=== PATIENT | female | born 1990 | race Caucasian/White ===

== ENCOUNTER 2017-03-07 10:39 | Emergency (ER) | payer BC ==
[~2017-03-07] VITALS: Ht 167.6 cm; Wt 117.0 kg
[~2017-03-07 10:39] MED LIST: ESCI10TA10 PO; IBUP-1222 PO; NO HOME MEDS; PREN1TAB60 PO
[2017-03-07] MEDS ORDERED: HYDROmorphone 2 MG/ML, 1ML ONE (13:22)
[2017-03-07] MEDS ORDERED: ONDANSETRON 2MG/ML, 2ML ONE (13:22)
[2017-03-07] MEDS ORDERED: SODIUM CHLORIDE FLUSH 10ML SYR IVF ONE (13:30)
[2017-03-07] MEDS ORDERED: SODIUM CHLORIDE 0.9% 1,000ML IVBOLUS ONE (13:30)
[2017-03-07] MEDS ORDERED: HYDROmorphone 1 MG/ML, 1ML IVPush PRN (13:30)
[2017-03-07] MEDS ORDERED: ONDANSETRON 2MG/ML, 2ML IVPush ONE (13:30)
[2017-03-07 13:35] LABS: HEMATOCRIT 40.9 % (34.6-47.8); HEMOGLOBIN 13.9 g/dL (11.7-16.4); WHITE BLOOD COUNT 7.4 x10^3/uL (3.4-10)
[2017-03-07 13:45] LABS: BLOOD UREA NITROGEN 13 mg/dL (7-18)
[2017-03-07 13:51] LABS: ASPARTATE AMINO TRANSFERASE 18 U/L (15-37)
[2017-03-07 15:12] VITALS: BP 124/84
== END 2017-03-07 15:14 | disposition home or self-care (01) ==
LOC: ED 13:14
DX: R10.11 Right upper quadrant pain (principal)
CPT/HCPCS: 36415; 76700; 80053; 83690; 84703; 85025; 96361; 96374; 96375; 99285; J1170; J2405; J7030

== ENCOUNTER 2017-12-19 15:41 | Emergency (ER) | payer BC ==
[~2017-12-19] VITALS: Ht 167.6 cm; Wt 113.2 kg
[2017-12-19 16:49] VITALS: BP 166/91
[2017-12-19 17:17] LABS: BASOPHILS # (AUTO) 0.04 x10^3/uL (0-0.1); BASOPHILS % (AUTO) 1 % (0-1); EOSINOPHILS % (AUTO) 1 % (1-7); LYMPHOCYTES # (AUTO) 2.37 x10^3/uL (1-3.4); LYMPHOCYTES % (AUTO) 32 % (22-44); MD NO; MEAN CORPUSCULAR HEMOGLOBIN 30.4 pg (27.0-34.8); MEAN CORPUSCULAR HGB CONC 34.8 g/dL (32.4-35.8); MEAN CORPUSCULAR VOLUME 87.2 fL (80-100); MEAN PLATELET VOLUME 8.1 fL (7.4-10.4); MONOCYTES # (AUTO) 0.92 x10^3/uL (0.2-0.8); MONOCYTES % (AUTO) 12 % (2-9); NEUTROPHILS # (AUTO) 3.97 x10^3/uL (1.8-6.8); NEUTROPHILS % (AUTO) 54 % (42-75); PLATELET COUNT 300 x10^3/uL (130-400); RED BLOOD COUNT 4.47 x10^6/uL (3.82-5.3); RED CELL DISTRIBUTION WIDTH 12.9 % (9.6-15.2)
[2017-12-19 17:30] LABS: ALANINE AMINOTRANSFERASE 31 U/L (12-78); ALBUMIN 3.8 g/dL (3.4-5.0); ANION GAP 7 mmol/L (5-15); CALCIUM 8.8 mg/dL (8.5-10.1); CHLORIDE 109 mmol/L (98-107); CREATININE 0.87 mg/dL (0.55-1.02)
[2017-12-19 17:35] LABS: ALKALINE PHOSPHATASE 118 U/L (45-117); BILIRUBIN,TOTAL 0.6 mg/dL (0.2-1.0); TOTAL PROTEIN 7.7 g/dL (6.4-8.2)
[2017-12-19 18:23] LABS: MICROSCOPIC AUTO
[2017-12-19] MEDS ORDERED: ONDANSETRON ODT 8 MG ONE (18:51)
[2017-12-19 18:56] LABS: CULTURE INDICATED? YES
[2017-12-19] MEDS ORDERED: NITROFURANTOIN (MACROBID) 100 MG CAPSULE PO ONE (19:00)
[2017-12-19] MEDS ORDERED: ONDANSETRON ODT 8 MG PO ONE (19:00)
[2017-12-19] MEDS ORDERED: NITROFURANTOIN (MACROBID) 100 MG CAPSULE ONE (19:19)
== END 2017-12-19 19:38 | disposition home or self-care (01) ==
LOC: ED 19:28
DX: R11.2 Nausea with vomiting, unspecified (principal); R10.9 Unspecified abdominal pain
CPT/HCPCS: 36415; 76700; 80053; 81001; 83690; 84703; 85025; 87086; 99285; Q0162

== ENCOUNTER 2018-06-10 14:10 | Emergency (ER) | payer BC ==
[~2018-06-10] VITALS: Ht 165.1 cm; Wt 112.0 kg
[2018-06-10] MEDS ORDERED: SODIUM CHLORIDE FLUSH 10ML SYR IVF ONE (14:30)
[2018-06-10] MEDS ORDERED: ONDANSETRON 2MG/ML, 2ML IVPush ONE (14:30)
--- NOTE | 2018-06-10 14:50 | NUR ---
Pt in CT at this time.
[2018-06-10] MEDS ORDERED: ONDANSETRON 2MG/ML, 2ML ONE (14:51)
[2018-06-10] MEDS ORDERED: FENTANYL PF 100 MCG/2ML ONE (14:52)
[2018-06-10 14:59] LABS: BASOPHILS # (AUTO) 0.04 x10^3/uL (0-0.1); BASOPHILS % (AUTO) 0 % (0-1); EOSINOPHILS # (AUTO) 0.07 x10^3/uL (0-0.4); EOSINOPHILS % (AUTO) 1 % (1-7); LYMPHOCYTES # (AUTO) 2.61 x10^3/uL (1-3.4); LYMPHOCYTES % (AUTO) 27 % (22-44); MD NO; MEAN CORPUSCULAR HEMOGLOBIN 29.9 pg (27.0-34.8); MEAN CORPUSCULAR HGB CONC 33.9 g/dL (32.4-35.8); MEAN CORPUSCULAR VOLUME 88.2 fL (80-100); MEAN PLATELET VOLUME 8.2 fL (7.4-10.4); MONOCYTES # (AUTO) 0.86 x10^3/uL (0.2-0.8); MONOCYTES % (AUTO) 9 % (2-9); NEUTROPHILS # (AUTO) 6.04 x10^3/uL (1.8-6.8); NEUTROPHILS % (AUTO) 63 % (42-75); PLATELET COUNT 363 x10^3/uL (130-400); RED BLOOD COUNT 4.87 x10^6/uL (3.82-5.3); RED CELL DISTRIBUTION WIDTH 12.6 % (9.6-15.2)
[2018-06-10] MEDS ORDERED: FENTANYL PF 100 MCG/2ML IVPush ONE (15:00)
[2018-06-10] MEDS ORDERED: OMNIPAQUE 350 MG/ML, 100ML BOTTLE ONE (15:01)
[2018-06-10 15:03] LABS: ALANINE AMINOTRANSFERASE 34 U/L (12-78); ALBUMIN 4.4 g/dL (3.4-5.0); ANION GAP 6 mmol/L (5-15); CALCIUM 8.7 mg/dL (8.5-10.1); CHLORIDE 110 mmol/L (98-107); CREATININE 0.92 mg/dL (0.55-1.02)
--- NOTE | 2018-06-10 15:03 | NUR ---
Pt back from CT, c/o 12/20 upper and lower abd pain. Pt medicated per MAR, denies other needs.
[2018-06-10 15:07] LABS: ALKALINE PHOSPHATASE 109 U/L (45-117); BILIRUBIN,TOTAL 0.8 mg/dL (0.2-1.0); TOTAL PROTEIN 8.1 g/dL (6.4-8.2)
[2018-06-10 15:20] LABS: PROTHROMBIN TIME 10.5 Seconds (9.6-11.5)
[2018-06-10] MEDS ORDERED: OXYcodone/APAP 10/325MG TABLET ONE (15:22)
[2018-06-10] MEDS ORDERED: HYDROcodone/APAP 5/325 TABLET ONE (15:24)
--- NOTE | 2018-06-10 15:26 | NUR ---
Pt states pain unchanged after Fentanyl. Discussed with Dr. Gerber. Orders received for [place] [place]. Pt medicated per order, denies other needs.
[2018-06-10] MEDS ORDERED: HYDROcodone/APAP 5/325 TABLET PO ONE (15:30)
[2018-06-10] MEDS ORDERED: OXYcodone/APAP 10/325MG TABLET PO ONE (15:30)
[2018-06-10 15:53] VITALS: BP 122/60
--- NOTE | 2018-06-10 15:53 | NUR ---
Pt states pain improved after medications, states she feels ready for dc.
== END 2018-06-10 15:56 | disposition home or self-care (01) ==
LOC: ED 15:45
DX: S30.1XXA Contusion of abdominal wall, initial encounter (principal); R10.13 Epigastric pain; X58.XXXA Exposure to other specified factors, initial encounter; Y93.89 Activity, other specified; Y92.89 Other specified places as the place of occurrence of the external cause; Y99.8 Other external cause status
CPT/HCPCS: 36415; 74177; 80053; 83690; 84703; 85025; 85610; 93005; 96374; 99284; J3010; Q9967

== ENCOUNTER 2018-07-23 08:48 | Emergency (ER) | payer BC ==
[~2018-07-23] VITALS: Ht 167.6 cm; Wt 111.8 kg
[2018-07-23 08:53] VITALS: BP 171/86
[2018-07-23 09:16] LABS: BASOPHILS # (AUTO) 0.03 x10^3/uL (0-0.1); BASOPHILS % (AUTO) 1 % (0-1); EOSINOPHILS # (AUTO) 0.13 x10^3/uL (0-0.4); EOSINOPHILS % (AUTO) 2 % (1-7); LYMPHOCYTES # (AUTO) 1.79 x10^3/uL (1-3.4); LYMPHOCYTES % (AUTO) 32 % (22-44); MD NO; MEAN CORPUSCULAR HEMOGLOBIN 30.6 pg (27.0-34.8); MEAN CORPUSCULAR HGB CONC 34.4 g/dL (32.4-35.8); MEAN CORPUSCULAR VOLUME 88.8 fL (80-100); MONOCYTES # (AUTO) 0.51 x10^3/uL (0.2-0.8); MONOCYTES % (AUTO) 9 % (2-9); NEUTROPHILS % (AUTO) 57 % (42-75); PLATELET COUNT 314 x10^3/uL (130-400); RED BLOOD COUNT 4.52 x10^6/uL (3.82-5.3); RED CELL DISTRIBUTION WIDTH 12.2 % (9.6-15.2)
[2018-07-23 09:28] LABS: ANION GAP 5 mmol/L (5-15); CALCIUM 8.9 mg/dL (8.5-10.1); CHLORIDE 111 mmol/L (98-107); CREATININE 0.72 mg/dL (0.55-1.02)
[2018-07-23 09:32] LABS: TROPONIN I < 0.015 ng/mL (0.000-0.045)
--- NOTE | 2018-07-23 09:47 | NUR ---
PT PRESENTED TO ED WITH CHEST PAIN SINCE LAST NIGHT. PT STATES CHEST PAIN IS 8/10. PT STATES THAT WITH EXERTION SHE HAS SHORTNESS OF BREATH. PT STATES THAT SHE HAS PAIN WITH DEEP INSPIRATION. ASSESSMENT COMPLETED. PT PLACED ON BP , CARDIAC AND CONT. PULSE OXIMETR.
[2018-07-23] MEDS ORDERED: KETOROLAC 30 MG/1 ML ONE (11:21)
--- NOTE | 2018-07-23 11:27 | NUR ---
MEDICATED PER ORDERS FOR [facility].
[2018-07-23] MEDS ORDERED: KETOROLAC 30 MG/1 ML IM ONE (11:30)
--- NOTE | 2018-07-23 11:39 | NUR ---
Patient/Caregiver given discharge instructions and they have confirmed that they understand the instructions. Patient ambulatory with steady gait.
== END 2018-07-23 11:41 | disposition home or self-care (01) ==
LOC: ED 10:41
DX: R07.89 Other chest pain (principal); R06.00 Dyspnea, unspecified
CPT/HCPCS: 36415; 71046; 80048; 82040; 84484; 85025; 85379; 93005; 96372; 99284; J1885

== ENCOUNTER 2019-03-03 16:49 | Emergency (ER) | payer BC ==
[~2019-03-03] VITALS: Ht 167.6 cm; Wt 112.0 kg
--- NOTE | 2019-03-03 17:49 | NUR ---
TWO ABCESS-LIKE WOUNDS ON LEFT FACE. PT STATES STARTED THIS MORNING. C/O WHITEHEAD, SOB, SLEEPING ALL DAY, LEFT LEG NUMBNESS, BILATERAL LEG ACHINESS.
[2019-03-03] MEDS ORDERED: IBUPROFEN 800 MG TABLET ONE (18:15)
[2019-03-03 18:30] LABS: BASOPHILS # (AUTO) 0.03 x10^3/uL (0-0.1); BASOPHILS % (AUTO) 0 % (0-1); EOSINOPHILS % (AUTO) 0 % (1-7); LYMPHOCYTES # (AUTO) 1.08 x10^3/uL (1-3.4); LYMPHOCYTES % (AUTO) 11 % (22-44); MD NO; MEAN CORPUSCULAR HEMOGLOBIN 30.8 pg (27.0-34.8); MEAN CORPUSCULAR HGB CONC 33.8 g/dL (32.4-35.8); MEAN CORPUSCULAR VOLUME 91.3 fL (80-100); MEAN PLATELET VOLUME 7.7 fL (7.4-10.4); MONOCYTES # (AUTO) 0.83 x10^3/uL (0.2-0.8); MONOCYTES % (AUTO) 8 % (2-9); NEUTROPHILS # (AUTO) 8.06 x10^3/uL (1.8-6.8); NEUTROPHILS % (AUTO) 81 % (42-75); PLATELET COUNT 308 x10^3/uL (130-400); RED BLOOD COUNT 4.38 x10^6/uL (3.82-5.3); RED CELL DISTRIBUTION WIDTH 12.8 % (9.6-15.2)
[2019-03-03] MEDS ORDERED: IBUPROFEN 800 MG TABLET PO ONE (18:30)
[2019-03-03 18:37] LABS: MICROSCOPIC AUTO
[2019-03-03 18:40] LABS: ALANINE AMINOTRANSFERASE 34 U/L (12-78); ANION GAP 6 mmol/L (5-15); CALCIUM 8.5 mg/dL (8.5-10.1); CHLORIDE 107 mmol/L (98-107); CREATININE 1.17 mg/dL (0.55-1.02); CULTURE INDICATED? YES
[2019-03-03 18:45] LABS: ALKALINE PHOSPHATASE 98 U/L (45-117); BILIRUBIN,TOTAL 0.9 mg/dL (0.2-1.0); TOTAL PROTEIN 7.7 g/dL (6.4-8.2)
--- NOTE | 2019-03-03 18:58 | NUR ---
Pt report from Urmila malin. This rn to assume care of pt. Pt in ct.
[2019-03-03] MEDS ORDERED: SODIUM CHLORIDE 0.9% 1,000ML IVBOLUS ONE (19:30)
[2019-03-03] MEDS ORDERED: SODIUM CHLORIDE FLUSH 10ML SYR IVF ONE (19:30)
[2019-03-03 19:51] VITALS: BP 130/88
== END 2019-03-03 19:53 | disposition home or self-care (01) ==
LOC: ED 19:08
DX: M54.42 Lumbago with sciatica, left side (principal); M54.41 Lumbago with sciatica, right side; Z22.322 Carrier or suspected carrier of Methicillin resistant Staphylococcus aureus
CPT/HCPCS: 36415; 71045; 80053; 81001; 84703; 85025; 87086; 93971; 99284; J7030

== ENCOUNTER 2019-10-13 16:49 | Emergency (ER) | payer BC ==
[~2019-10-13] VITALS: Ht 167.6 cm; Wt 117.4 kg
--- NOTE | 2019-10-13 18:34 | NUR ---
pt to room from lobby
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
--- NOTE | 2019-10-13 19:20 | NUR ---
positioning for comfort and ice pack placed for pain
[2019-10-13] MEDS ORDERED: HYDROcodone/APAP 5/325 TABLET PO STA (19:50)
[2019-10-13] MEDS ORDERED: IBUPROFEN 800 MG TABLET PO STA (19:50)
--- NOTE | 2019-10-13 20:05 | NUR ---
pt has orders for pain meds. pt declines at this time. awaiting sling placement
[2019-10-13] MEDS ORDERED: FLUORESCEIN OPHTHALMIC 1 MG STRIP ONE (20:39)
[2019-10-13] MEDS ORDERED: PROPARACAINE OPHTH 0.5%, 15ML ONE (20:39)
[2019-10-13 20:42] VITALS: BP 113/54
== END 2019-10-13 20:46 | disposition home or self-care (01) ==
LOC: ED 20:26
DX: S40.011A Contusion of right shoulder, initial encounter (principal); W22.8XXA Striking against or struck by other objects, initial encounter; Y93.89 Activity, other specified; Y92.89 Other specified places as the place of occurrence of the external cause; Y99.8 Other external cause status
CPT/HCPCS: 99283